=== PATIENT | female | born 1975 | race African-American/Black ===

== ENCOUNTER 2016-12-26 06:26 | Day surgery (SDC) | payer OTHER ==
--- NOTE | 2016-12-24 15:12 | EKG Report ---
Test Performed on : 12/24/2016 3:01:25 PM Test Reason : PAT Blood Pressure : / mmHG Vent. Rate : 075 BPM Atrial Rate : 075 BPM P-R Int : 148 ms QRS Dur : 088 ms QT Int : 388 ms P-R-T Axes : 000 179 135 degrees QTc Int : 433 ms Normal sinus rhythm. Right axis deviation Abnormal ECG No previous ECGs available Confirmed by Niharika SANCHEZ, Jt Ramos ([id number]) on 12/24/2016 3:25:43 PM
[2016-12-24 15:55] LABS: AGAP 11; BUN 9 mg/dL (8-22); CALCIUM 9.4 mg/dL (8.8-10.2); CHLORIDE 99 mmol/L (98-107); COSMO 275; POTASSIUM 4.2 mmol/L (3.5-5.1); SODIUM 137 mmol/L (136-145); TCO2 27 mmol/L (25-35)
[2016-12-26] MEDS ORDERED: LR 1,000 ML ONE ×2 (07:12→13:38)
[2016-12-26] MEDS ORDERED: KEFZOL 2 GM/D5W 50 ML ONE (07:13)
[2016-12-26] MEDS: DILAUDID ONE ×6 (11:00→11:39)
[2016-12-26] MEDS ORDERED: NORCO-10 ONE (12:37)
[2016-12-26 12:44] VITALS: BP 138/66
[2016-12-26] MEDS ORDERED: XYLOCAINE-MPF 2% ONE (13:38)
[2016-12-26] MEDS ORDERED: QUELICIN (DOSE) ONE (13:38)
[2016-12-26] MEDS ORDERED: EPHEDRINE ONE (13:38)
[2016-12-26] MEDS ORDERED: ZOFRAN ONE (13:38)
[2016-12-26] MEDS ORDERED: FENTANYL ONE (14:12)
[2016-12-26] MEDS ORDERED: DIPRIVAN 1% ONE (14:12)
--- NOTE | 2016-12-26 15:54 | OPERATIVE NOTE ---
PROCEDURE DATE : 12/26/2016 PROCEDURE PERFORMED: Correction of bilateral inverted nipples. SURGEON: Dr. Bebo Cuenca ICD-10 DIAGNOSIS CODE: Z41.1, cosmetic surgery. CPT CODE: 13538, correction of inverted; [id number], correction of inverted nipple on the other side. INDICATION: This patient is a 41-year-old black female with large breasts but has inverted nipples, the right side being worse than the left. She is extremely self conscious about these nipples. She feels that this self consciousness is hurting some of her intimacy with her , and she would feel better about herself if she had protuberant nipples. She was unaware that there was even a procedure to do this correction for most of her life, and when she found out about it recently, she pursued a consultation to learn more about it. She was seen in the office for informed consent on her preop visit which was 12/24/2016 and at that point, we again explained how we would open up the nipple, cut the ducts. She understands that this can decrease nipple sensation, there can be poor wound healing of the nipples or nipple necrosis because of poor blood supply, and she will not be able to breast feed again because the nipple ducts will not be in continuity. She understood all of the risks and complications and decided to proceed. DESCRIPTION OF PROCEDURE: The patient was brought to the operating room after she was given general anesthesia and the breasts were prepped and draped. Both nipples were done in a similar fashion. The nipple was made to protrude by putting a single skin hook in the middle of it and pulling it out. Then an 11-blade was used to make approximately a 3 to 4 mm incision at the base of the nipple, and then Supercut iris scissors and tenotomy scissors were used to snip all of the ducts and all of the fibrous tissue in the nipple to allow the ducts to retract back into the breast. When this was done, the nipples were already protuberant when they were released from the short ducts. Both incisions were closed with interrupted 5-0 chromic stitches, and then the needles were straightened, and then a loosely tied horizontal mattress stitch was placed horizontally and vertically through both nipples to allow them to stay protuberant as they went through the healing process. The nipples were protected by foam, [place] donut dressings and then a light gauze dressing was applied. She tolerated the procedure well and was transported to the recovery room in good condition.
== END 2016-12-26 13:30 | disposition home or self-care (01) ==
LOC: OPS 06:26
PROVIDERS: ATTEND Surgery Plastic and Reconstructive Surgery
DX: N64.59 Other signs and symptoms in breast (principal); I10 Essential (primary) hypertension; E66.01 Morbid (severe) obesity due to excess calories; Z68.43 Body mass index [BMI] 50.0-59.9, adult; E11.9 Type 2 diabetes mellitus without complications
CPT/HCPCS: 80048; 82948; 93005; 93010; J0330; J0690; J1170; J2405; J3010; J7120